=== PATIENT | male | born 1995 | race Caucasian/White ===

== ENCOUNTER 2025-02-12 21:22 | Emergency (ER) | payer OTHER ==
[~2025-02-12] VITALS: Ht 180.3 cm; Wt 77.1 kg
[2025-02-13 00:53] VITALS: PULSE 62; RESP 16; TEMP 98.3; O2SAT 97
== END 2025-02-13 00:56 | disposition home or self-care (01) ==
LOC: ER 21:28
DX: N50.819 Testicular pain, unspecified (principal); N44.2 Benign cyst of testis; F41.9 Anxiety disorder, unspecified
CPT/HCPCS: 76870; 93976; 99283